=== PATIENT | female | born 1955 | race Caucasian/White ===

== ENCOUNTER → 2023-06-17 13:17 | Outpatient (BNVA) | payer OTHER, SELFPAY | PROVIDERS: Visit Provider Physician Assistant | DX: M70.841 Other soft tissue disorders related to use, overuse and pressure, right hand (principal) | CPT/HCPCS: 99203 ==

== ENCOUNTER → 2023-06-29 13:44 | Outpatient (BNVA) | payer OTHER, SELFPAY | PROVIDERS: Visit Provider Physician Assistant Medical | DX: M25.531 Pain in right wrist (principal); M79.644 Pain in right finger(s); R20.0 Anesthesia of skin | CPT/HCPCS: 99213 ==

== ENCOUNTER → 2023-07-14 14:10 | Outpatient (BNVA) | payer OTHER, SELFPAY | PROVIDERS: PCP Family Medicine; Visit Provider Physician Assistant Medical | DX: M70.841 Other soft tissue disorders related to use, overuse and pressure, right hand (principal); M25.531 Pain in right wrist | CPT/HCPCS: 99213 ==

== ENCOUNTER 2023-07-29 15:00 | Outpatient (RCR) | payer OTHER, SELFPAY ==
--- NOTE | 2023-07-01 16:05 | MHC.OT.EP ---
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 Pt arrived wearing wrist cock-up splint which she reports is helping some. 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 A 27% limitation is reported per the Quick DASH assessment. Pt would benefit from short term skilled OT to address noted barriers and assist in return to PLOF. Frequency and Duration: The patient will be seen 2x/wk for 4 weeks Short Term Goals: IND with activity modification and joint protection techniques Decrease pain <3/10 with activity IND with nerve glides and AROM HEP Skilled Nursing Goals: Pain free with work related tasks Wrist flexion WNL's Improve R gross grasp by 5# Quick DASH < 10% Treatment Plan: Therapeutic Exercise Therapeutic Activity Home Exercise Program Splinting Patient Education Ultrasound Paraffin Fluidotherapy MHP Soft Tissue Mobilization Electronically Signed By: Christine Altamirano, MS OTR/L Please Sign and return to therapist. Thank you once again for your referral.
--- NOTE | 2023-07-29 15:40 | MHC.OT.DC ---
[address] [phone] F: [phone] Occupational Therapy Discharge Note Patient Name: Sahra Hernández Provider: Bridget Neely PA-C Diagnosis: Right wrist tendonitis CTS Date of Evaluation: 07/01/23 Date of Discharge: 07/29/23 Treatments to Date: 9 Discharge Status: Independent with HEP Discharge Summary: Perico was referred to OT w/ right radial wrist pain and symptoms consistent with overuse injury and dorsal radial sensory nerve irritation. She has done well through course of OT w/ good follow through w/ HEP and nighttime orthosis wear. She continues to have numbness/tingling over dorsal radial sensory nerve distribution, but is reporting slow improvements, especially when consistent with nighttime orthosis wear. She i Ind w/ self management techniques and has moved planned to [place] after upcoming vacation. May follow up with outpatient hand specialist/surgeon after move if cont's to have nerve symptoms. Electronically Signed By: JOE Cadet/Zuri CHT Reviewed/agree with student documentation: Therapist: Please Sign and return to therapist, thank you for your referral.
== END 2023-07-29 15:40 | disposition home or self-care (01) ==
LOC: HO.OT 15:00
PROVIDERS: PCP Family Medicine; Visit Provider Physician Assistant Medical
DX: M77.8 Other enthesopathies, not elsewhere classified (principal)
CPT/HCPCS: 29125; 97033; 97110; 97140; 97165; 97760

== ENCOUNTER → 2023-07-29 15:40 | Outpatient (BNVA) | payer OTHER, SELFPAY | PROVIDERS: PCP Family Medicine; Visit Provider Physician Assistant | DX: M70.841 Other soft tissue disorders related to use, overuse and pressure, right hand (principal) | CPT/HCPCS: 99213 ==

== ENCOUNTER → 2023-08-02 14:47 | Outpatient (BNVA) | payer OTHER, SELFPAY | PROVIDERS: PCP Family Medicine; Visit Provider Anesthesiology | DX: M70.841 Other soft tissue disorders related to use, overuse and pressure, right hand (principal) ==

== ENCOUNTER 2023-08-03 14:45 | Outpatient (REF) | payer OTHER, SELFPAY ==
[2023-08-03 16:31] LABS: CDiff Gene PCR POSITIVE (Negative)
[2023-08-03 17:03] LABS: Adenovirus F 40/41 Not Detected (Not Detect.); Astrovirus Not Detected (Not Detect.); Campylobacter Not Detected (Not Detect.); Cryptosporidium Not Detected (Not Detect.); Cyclospora cayetanensis Not Detected (Not Detect.); E. coli EAEC Not Detected (Not Detect.); E. coli EPEC Not Detected (Not Detect.); E. coli ETEC Not Detected (Not Detect.); E. coli STEC Not Detected (Not Detect.); Entamoeba histolytica Not Detected (Not Detect.); Giardia lamblia Not Detected (Not Detect.); Norovirus GI/GII Not Detected (Not Detect.); Plesiomonas shigelloides Not Detected (Not Detect.); Rotavirus A Not Detected (Not Detect.); Salmonella Not Detected (Not Detect.); Sapovirus Not Detected (Not Detect.); Shigella sp./EIEC Not Detected (Not Detect.); Vibrio Not Detected (Not Detect.); Vibrio Cholerae Not Detected (Not Detect.); Yersinia enterocolitica Not Detected (Not Detect.)
[2023-08-03 17:52] LABS: CDIFF Internal ctrl Dots and bkg OK (V)
[2023-08-03 17:58] LABS: CDiff Toxin Positive (Negative)
== END 2023-08-03 14:46 | disposition home or self-care (01) ==
LOC: HO.LAB 14:45
PROVIDERS: Visit Provider Internal Medicine Nephrology
DX: R19.7 Diarrhea, unspecified (principal); R10.32 Left lower quadrant pain
CPT/HCPCS: 87177; 87209; 87324; 87493; 87507